=== PATIENT | female | born 1970 | race Caucasian/White ===

== ENCOUNTER 2018-04-04 13:55 | Emergency (ER) ==
[2018-04-04 14:07] VITALS: BP 118/84; TEMP 98.3; BMI 39.2
--- NOTE | 2018-04-04 17:27 | ED.PDOC ---
General ED Provider: Dr. ELISEO STEINER Chief Complaint: Non-specific Complaint Stated Complaint: SHOULDER PAIN , ARM PAIN, LEG PAIN BILATERAL DUE TO A LUPUS FLARE UP Time Seen by Physician: 14:00 Mode of Arrival: Walk-In Information Source: Patient Exam Limitations: No limitations Referred to ED by: Other (ANUSHA PRESENT AT ALL TIMES ) Nursing and Triage Documentation Reviewed and Agree: Yes Does patient meet sepsis criteria?: No If yes, has appropriate treatment been initiated?: No (ANUSHA PRESENT AT ALL TIMES ) System Inflammatory Response Syndrome: Not Applicable Sepsis Protocol: For patient's 13 years and over: Temp is 96.8 and below OR 101 and greater Pulse >90 BPM Resp >20/minute Acutely Altered Mental Status Are patient's symptoms suggestive of a new infection, such as: -Pneumonia -Skin, Soft Tissue -Endocarditis -UTI -Bone, Joint Infection -Implantable Device -Acute Abdominal Infection -Wound Infection -Meningitis -Blood Stream Catheter Infection -Unknown Musculoskeletal Complaint Exam - Shoulder Pain Complaint/Exam Mechanism of Injury: Reports: No known trauma Onset/Duration: TODAY Episodes Lasting: ALL DAY RIGHT SIDED ALSO HAS HAD PAIN ARMS LEGS Initial Severity: Mild Current Severity: Mild Location: Reports: Diffuse Character: Reports: Aching Alleviating: Reports: None Aggravating: Reports: Movement, Lifting, Flexion, Extension, Internal rotation Associated Signs and Symptoms: Denies: Swelling, Redness, Bruising, Fever, Weakness, Numbness, Tingling Related History: Reports: Similar episode (LUPUS FLARE UP) Non-Orthopedic Risk Factors: Reports: None Septic Arthritis Risk Factors: Reports: None Related Surgical History: Reports: None Shoulder Findings: Absent: Swelling, Ecchymosis, Abnormal contour, Rotation, Ligamentous instability, Laceration, Erythema, Warmth, Blisters, Other joint pain, Foreign body, Adson's Sign Tenderness: Present: AC joint, Proximal humerus, Rotator cuff muscles Limited Range of Motion: Absent: Abduction, Adduction, Flexion, Extension, Internal rotation, Rotator cuff muscles Differential Diagnoses: Sprain, Strain, Tendonitis, Bursitis Review of Systems - Review Of Systems Constitutional: Reports: No symptoms Eyes: Reports: No symptoms Ears, Nose, Mouth, Throat: Reports: No symptoms Respiratory: Reports: No symptoms Cardiac: Reports: No symptoms GI: Reports: No symptoms : Reports: No symptoms Musculoskeletal: Reports: Joint pain (ARMS , LEGS ) Skin: Reports: No symptoms Neurological: Reports: No symptoms Endocrine: Reports: No symptoms Hematologic/Lymphatic: Reports: No symptoms All Other Systems: Reviewed and Negative Past Medical History - Past Medical History Previously Healthy: Yes Endocrine: Reports: Hypothyroid Cardiovascular: Reports: None Respiratory: Reports: None Hematological: Reports: None Gastrointestinal: Reports: None Genitourinary: Reports: Other (LUPUS ) Neuro/Psych: Reports: None Musculoskeletal: Reports: None Cancer: Reports: None Last Menstrual Period: 1 year - Surgical History General Surgical History: Reports: None - Family History Family History: Reports: None - Social History Smoking Status: Current every day smoker, Heavy tobacco smoker Hx Substance Use: No Alcohol Screening: None Physical Exam - Physical Exam Appearance: Well-appearing, No pain distress, Well-nourished Eyes: JESSICA, EOMI, Conjunctiva clear ENT: Ears normal, Nose normal, Oropharynx normal Respiratory: Airway patent, Breath sounds clear, Breath sounds equal, Respirations nonlabored Cardiovascular: RRR, Pulses normal, No rub, No murmur GI/: Soft, Nontender, No masses, Bowel sounds normal, No Organomegaly Musculoskeletal: Normal strength, ROM intact, No edema, No calf tenderness Skin: Warm, Dry, Normal color Neurological: Sensation intact, Motor intact, Reflexes intact, Cranial nerves intact, Alert, Oriented Psychiatric: Affect appropriate, Mood appropriate Critical Care Note - Critical Care Note Total Time (mins): 0 Course - Course Vital Signs: Temp Pulse Resp BP Pulse Ox 04/04/18 13:57 98.3 F 82 20 118/84 95 Departure - Departure Time of Disposition: 17:28 Disposition: HOME SELF-CARE Discharge Problem: Lupus Qualifiers: Lupus erythematosus form: unspecified Qualified Code(s): L93.0 - Discoid lupus erythematosus Instructions: Lupus Erythematosus (DC), Fibromyalgia (ED), Trigger Point Pain ( ED) Condition: Good Pt referred to PMD for follow-up: Yes IPMP verified?: No Additional Instructions: Please call your Family Physician as soon as possible to schedule a follow-up appointment. Prescriptions: Hydrocodone/Acetaminophen [[place] 10-325 Tablet] 1 each PO Q8HR #7 tablet Allergies/Adverse Reactions: Allergies morphine Adverse Reaction (Verified 04/04/18 14:08) promethazine [From Phenergan] Adverse Reaction (Verified 04/04/18 14:08) Home Medications: Ambulatory Orders Amitriptyline HCl [Elavil] 10 mg PO DAILY 04/04/18 Gabapentin [Neurontin] 300 mg PO TID 04/04/18 Hydrocodone/Acetaminophen [[place] 10-325 Tablet] 1 each PO Q8HR #7 tablet Levothyroxine Sodium [Synthroid] 200 mcg PO DAILY 04/04/18 Propranolol HCl [Inderal LA] 160 mg PO DAILY 04/04/18
[2018-04-04] MEDS ORDERED: DUONEB NEB ONE (18:04)
== END 2018-04-04 18:06 | disposition home or self-care (01) ==
LOC: ED 13:55
DX: L93.0 Discoid lupus erythematosus (principal); F17.210 Nicotine dependence, cigarettes, uncomplicated
CPT/HCPCS: 99282

== ENCOUNTER 2018-05-01 12:23 | Outpatient (CLI) | END 2018-05-01 12:24 | disposition home or self-care (01) | LOC: RHC-LAB 12:23 | PROVIDERS: ATTEND Nurse Practitioner Family | DX: Z00.00 Encounter for general adult medical examination without abnormal findings (principal) | CPT/HCPCS: 36415; 80053; 80061; 84443; 85025 ==

== ENCOUNTER 2018-08-19 10:35 | Outpatient (CLI) | END 2018-08-19 10:36 | disposition home or self-care (01) | LOC: RHC-LAB 10:35 | PROVIDERS: ATTEND Nurse Practitioner Family | DX: R05 Cough (principal); J02.9 Acute pharyngitis, unspecified; E03.9 Hypothyroidism, unspecified | CPT/HCPCS: 36415; 80053; 80061; 84443; 87502; 87651 ==